=== PATIENT | male | born 1990 | race Caucasian/White ===

== ENCOUNTER 2016-09-03 12:56 | Emergency (ER) | payer SELFPAY ==
[~2016-09-03] VITALS: Ht 180.3 cm; Wt 77.3 kg
[2016-09-03 12:59] VITALS: BP 150/86; PULSE 95; RESP 16; O2SAT 99
--- NOTE | 2016-09-03 15:28 | ED.REPORT ---
HPI-Rash / Abscess Date of Service Sep 03, 2016 ED Provider: Luis Enrique Cutler History of Present Illness: 25yo male with perineal boil x 2 days. tried to I&D at home last evening, "It made it worse." No fever. No meds or cjhronic medical problems. Plans to drive to [place] beginning tomorrow. Nursing Notes Stated Complaint: SWOLLEN ANAL GLAND Chief Complaint: General Complaint Nursing Notes Reviewed: Yes Allergies: Coded Allergies: No Known Allergies (Unverified , 09/03/16) General Time Seen by MD: 15:26 Chief Complaint Abscess Hx Obtained From: Patient Arrived By: Walk-in Onset Occurred: 2 days ago Symptom Duration: Since onset Location: : Inguinal Severity: Current: Moderate Severity: Maximum: Moderate Associated with: Denies Fever, Denies Red streaking, Denies Vomiting Pertinent Negative: Pt denies other symptoms Pertinent Negative: Relieved by nothing Past Medical History Past Medical History Hx. of overuse of pain meds, "I don't want any pain pills." Past Surgical History denies Smoking History Current Every Day Smoker Social History Alcohol Use: Denies alcohol use Other Social History: Ambulatory Status Independent Review of Systems Constitutional: Denies: Chills, Fever Cardiovascular: Denies: Chest pain GI: Denies: Abdominal pain Musculoskeletal: Denies: Back pain Skin: Reports Swelling (in groin abscess) Physical Exam Initial Vital Signs Vital Signs (First) Date Time Temp Pulse Resp B/P Pulse Ox O2 Delivery O2 Flow Rate FiO2 09/03/16 12:59 36.2 95 16 150/86 99 Initial VS: Reviewed General/Constitutional: Awake, Alert, No acute distress Abscess #1 Location/Condition: Positive: Perineum... (Fluctuant) no rectal involvement Procedures Procedure Notes: Pt. examined by Dr. Ceja who concurs with plan to I&D. Incision & Drainage Abscess Time: 15:41 Consent / Setup / Site Prep: Consent from patient Skin Preparation Agent: Betadine Local Anesthesia: Mepivacaine 1% Incised Abscess with Scalpel: #11 Pus Drained: Medium Irrigation: No Re-Eval/Medical Decision Med Decision/Clinical Course Pt. examined by Dr. Ceja who concurs with I&D plan. Diagnosis Appears: Evident Counseled Regarding: Diagnosis, Need for follow-up, When/why to return to ED Discharge & Departure Impression: Primary Impression: Perineal abscess Disposition: Home Patient Instructions: Abscess (ED) Additional Instructions: Warm soaks. Take three 200mg Advil for total of 600mg 3 times daily as needed foir pain. Get rechecked in 2-3 days if possible. Please seek care if any symptoms worsen. Referrals: [facility] Provider for [facility]: Shanita Ceja MD Attending Statement Patient seen and examined with Mr. Cutler. He has a small superficial abscess on his perineum. Rectal exam does not suggest that it is a perirectal abscess. Mr. Cutler will open and drain it. Without cellulitis I have not recommended additional antibiotics. Patient does have a history of drug use and dependence in the past and is wary of pain medications. We will discuss this thoroughly on discharge. Shanita Ceja MD Sep 03, 2016 15:28 Luis Enrique Cutler [facility] Sep 03, 2016 15:44
== END 2016-09-03 16:12 | disposition home or self-care (01) ==
LOC: SED 12:56
DX: L02.215 Cutaneous abscess of perineum (principal); F17.200 Nicotine dependence, unspecified, uncomplicated